=== PATIENT | male | born 1970 | race Caucasian/White ===

== ENCOUNTER 2017-07-21 16:24 | Emergency (ER) | payer SELFPAY ==
--- NOTE | 2017-07-21 17:00 | ER Document Report ---
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 He really noticed it when he took his boot off yesterday. He is unable to work the clutch on his truck or car at this point due to pain. No history of gout, diabetes. No fever or chills. Associated Symptoms: None Exacerbated by: Movement Relieved by: Denies - ROS ROS below otherwise negative: Yes Systems Reviewed and Negative: Yes All other systems reviewed and negative Past Medical History - General Information source: Patient - Social History Smoking Status: Current Every Day Smoker Frequency of alcohol use: None Drug Abuse: None Lives with: Family Family History: Reviewed & Not Pertinent - Medical History Medical History: Negative Surgical Hx: Negative Vertical Provider Document - CONSTITUTIONAL Agree With Documented VS: Yes Exam Limitations: No Limitations General Appearance: No Apparent Distress - INFECTION CONTROL TRAVEL OUTSIDE OF THE [place] IN LAST 30 DAYS: No - HEENT HEENT: Normocephalic - NECK Neck: Supple - RESPIRATORY Respiratory: Breath Sounds Normal, No Respiratory Distress - CARDIOVASCULAR Cardiovascular: Regular Rate, Regular Rhythm - MUSCULOSKELETAL/EXTREMETIES Musculoskeletal/Extremeties: Tender, Edema - red warm especially at the 1st MTP joint, increased pain with movement, small area of pink tender distal tibial skin, and dorsal medial left foot, no broken skin in the foot - NEURO Level of Consciousness: Awake, Alert Motor/Sensory: No Motor Deficit, No Sensory Deficit - Left her she just finished - DERM Integumentary: Warm, Dry, No Rash Course - Re-evaluation Re-evalutation: 07/21/17 19:06 Dr. Nelson and examined the patient also and believes that it is gout. Uric acid is 7.4 which is within the normal limits. The x-ray shows a small well- corticated lucency at the base of the distal end of the first metatarsal which may be related to previous trauma. Dr. Nelson wants me to treat him with steroids and pain medication and he can follow-up with orthopedics. - Vital Signs Vital signs: Temp Pulse Resp BP Pulse Ox 97.9 F 67 16 126/71 H 98 07/21/17 16:42 07/21/17 16:42 07/21/17 16:42 07/21/17 16:42 07/21/17 16:42 - Laboratory Result Diagrams: 07/21/17 17:51 07/21/17 17:51 Discharge - Discharge Clinical Impression: Gout Qualifiers: Gout site: foot Gout etiology: other secondary cause Chronicity: acute Laterality: left Qualified Code(s): M10.472 - Other secondary gout, left ankle and foot Condition: Good Disposition: HOME, SELF-CARE Instructions: Gout (OM), Gout Diet (OM), Oral Narcotic Medication (OM), Steroid Medication Additional Instructions: crutches steroids for 7 days which will stop this drink plenty of water to clear the system pain medication for a few days see orthopedic doctor for follow up, call for appointment referral to family practice doctor Prescriptions: Hydrocodone Bit/Acetaminophen [Hydrocodon-Acetaminophen 5-325] 1 each PO Q4HP PRN #15 tablet PRN Reason: Prednisone [Deltasone 10 mg Tablet] 10 mg PO ASDIR PRN #21 tablet PRN Reason: Referrals: JEFFERSON SHERIFF MD [ACTIVE STAFF] - Follow up as needed
--- NOTE | 2017-07-21 17:46 | RADIOLOGY REPORT (SQ) ---
EXAM DESCRIPTION: FOOT LEFT COMPLETE COMPLETED DATE/TIME: 07/21/2017 5:31 pm REASON FOR STUDY: right foot pain at MTP COMPARISON: None. NUMBER OF VIEWS: Three views. TECHNIQUE: AP, lateral and oblique radiographic images acquired of the left foot. LIMITATIONS: None. FINDINGS: MINERALIZATION: Normal. BONES: No acute fracture or dislocation. A small well corticated lucency is identified at the level of the distal end of the 1st metatarsal which may be related to previous trauma. JOINTS: No effusions. SOFT TISSUES: No soft tissue swelling. No foreign body. OTHER: No other significant finding. IMPRESSION: Small well corticated lucency at the level of the distal end of the 1st metatarsal which may be related to previous trauma. This could also be degenerative in nature. NO RADIOGRAPHIC EVIDE NCE OF ACUTE INJURY. TECHNICAL DOCUMENTATION: JOB ID: [id number] [employer]- All Rights Reserved Reading location - IP/workstation name: [email or web address]
[2017-07-21 18:24] LABS: ABSOLUTE EOSINOPHILS # (AUTO) 0.2 10^3/uL (0.0-0.6); ABSOLUTE LYMPHOCYTES (AUTO) 2.4 10^3/uL (0.5-4.7); ABSOLUTE MONOCYTES (AUTO) 0.9 10^3/uL (0.1-1.4); ABSOLUTE NEUT (AUTO) 4.4 10^3/uL (1.7-8.2); BASOPHILS % (AUTO) 0.6 % (0-2); EOSINOPHILS % (AUTO) 2.7 % (0-6); HEMATOCRIT 41.5 % (37.9-51.0); HEMOGLOBIN 14.2 g/dL (13.5-17.0); LYMPHOCYTES % (AUTO) 29.6 % (13-45); MEAN CORPUSCULAR HEMOGLOBIN 31.1 pg (27.0-33.4); MEAN CORPUSCULAR HGB CONC 34.3 g/dL (32.0-36.0); MEAN CORPUSCULAR VOLUME 91 fl (80-97); MONOCYTES % (AUTO) 11.1 % (3-13); PLATELET COUNT 216 10^3/uL (150-450); RED BLOOD COUNT 4.57 10^6/uL (4.35-5.55); RED CELL DISTRIBUTION WIDTH 13.8 % (11.5-14.0); TOTAL CELLS COUNTED % (AUTO) 100 %; WHITE BLOOD COUNT 7.9 10^3/uL (4.0-10.5)
[2017-07-21] MEDS ORDERED: IBUPROFEN 800 MG TABLET PO ONE (18:35)
[2017-07-21] MEDS ORDERED: HYDROCODONE/ACETAMINOPHEN 5-325 MG TABLET PO ONE (18:35)
[2017-07-21 18:45] LABS: ALANINE AMINOTRANSFERASE 47 U/L (21-72); ALKALINE PHOSPHATASE 87 U/L (38-126); ANION GAP 11 (5-19); ASPARTATE AMINO TRANSFERASE 25 U/L (17-59); BILIRUBIN,DIRECT 0.3 mg/dL (0.0-0.4); BILIRUBIN,TOTAL 0.5 mg/dL (0.2-1.3); BLOOD UREA NITROGEN 12 mg/dL (7-20); CALCIUM 9.3 mg/dL (8.4-10.2); CARBON DIOXIDE 27 mmol/L (22-30); CHLORIDE 101 mmol/L (98-107); GLUCOSE 113 mg/dL (75-110); POTASSIUM 4.2 mmol/L (3.6-5.0); TOTAL PROTEIN 6.6 g/dL (6.3-8.2); URIC ACID 7.4 mg/dL (3.5-8.5)
[2017-07-21 19:35] VITALS: BP 101/59
== END 2017-07-21 19:35 | disposition home or self-care (01) ==
LOC: ER 16:24
DX: M10.472 Other secondary gout, left ankle and foot (principal); M79.672 Pain in left foot; M79.89 Other specified soft tissue disorders; F17.200 Nicotine dependence, unspecified, uncomplicated
CPT/HCPCS: 36415; 80053; 84550; 85025; 99284